=== PATIENT | female | born 1995 | race Two or more races ===

== ENCOUNTER 2018-09-28 15:16 | Inpatient (IN) | payer MEDICAID ==
[2018-09-28] MEDS ORDERED: IBUPROFEN 600 MG TAB PO (16:30)
[2018-09-28] MEDS ORDERED: OXYTOCIN 30 UNITS/LR 500 ML IV (16:30)
[2018-09-28] MEDS ORDERED: BUTORPHANOL 2 MG INJ IV (16:30)
[2018-09-28] MEDS ORDERED: OXYCODONE/ASPIRIN (4.88/325) TAB PO (16:30)
[2018-09-28] MEDS ORDERED: MISOPROSTOL 200 MCG TAB PR (16:30)
[2018-09-28] MEDS ORDERED: LIDOCAINE 1% (MPF) 30 ML INJ INJ (16:30)
[2018-09-28] MEDS ORDERED: METHYLERGONOVINE 0.2 MG INJ IM (16:30)
[2018-09-28] MEDS ORDERED: CARBOPROST 250 MCG INJ IM (16:30)
[2018-09-28 17:30] LABS: ADD MAN DIFF? NO
[2018-09-28 17:33] LABS: WHITE BLOOD COUNT 9.2 10^3/ul (4.8-10.8)
[2018-09-28 17:33] LABS: BASOPHILS % 0.4 % (0.0-2.0); EOSINOPHILS # 0.1 10^3/ul (0.0-0.5); EOSINOPHILS % 0.9 % (0.0-7.0); HEMATOCRIT 31.2 % (37.0-47.0); HEMOGLOBIN 10.1 g/dl (12.0-16.0); LYMPHOCYTES % 22.1 % (15.0-51.0); MEAN CORPUSCULAR HEMOGLOBIN 27.8 pg (29.0-33.0); MEAN CORPUSCULAR HGB CONC 32.4 g/dl (32.0-37.0); MEAN PLATELET VOLUME 12.4 fl (7.4-10.4); MONOCYTE # 0.9 10^3/ul (0.3-0.9); MONOCYTES % 9.4 % (0.0-11.0); NEUTROPHIL # 6.1 10^3/ul (1.6-7.5); NUCLEATED RED BLOOD CELLS% 0.2 /100WBC (0.0-0.0); PLATELET COUNT 255 10^3/UL (140-415); RED BLOOD COUNT 3.63 10^6/ul (4.20-5.40); RED CELL DISTRIBUTION WIDTH 15.8 % (11.5-14.5)
[2018-09-28 17:52] LABS: INR 0.92; PROTIME 12.4 Sec (11.9-14.9)
[2018-09-28 17:53] LABS: PARTIAL THROMBOPLASTIN TIME 26.5 Sec (23.0-35.0)
[2018-09-28 18:31] LABS: HEPATITIS B SURFACE ANTIGEN NEGATIVE (NEGATIVE)
[2018-09-28] MEDS: LACTATED RINGER'S 1,000 ML IV ×2 (19:00→20:10)
[2018-09-29 01:55] LABS: AMPHETAMINE/METHAMPHETAMINE Negative (NEGATIVE); BARBITURATES Negative (NEGATIVE); BENZODIAZEPINES Negative (NEGATIVE); CANNABINOIDS Negative (NEGATIVE); COCAINE Negative (NEGATIVE); OPIATES Negative (NEGATIVE)
[2018-09-29] MEDS: LACTATED RINGER'S 1,000 ML IV ×3 (04:05→15:56)
[2018-09-29] MEDS: OXYTOCIN 30 UNITS/LR 500 ML IV ×4 (08:36→22:04)
[2018-09-29] MEDS ORDERED: FENTAnyl 2MCG/ML-ROPIV 0.2% 100 ML (15:51)
[2018-09-29] MEDS ORDERED: NALOXONE (0.4 MG/ML) INJ IV (16:00)
[2018-09-29] MEDS: FENTAnyl 2MCG/ML-ROPIV 0.2% 100 ML BAG EPI (17:21)
[2018-09-29 21:37] LABS: RAPID PLASMA REAGIN NONREACTIVE (NR)
[2018-09-29] MEDS ORDERED: NACL 0.9% 3 ML SYG IV (22:00)
[2018-09-29] MEDS ORDERED: DIBUCAINE 1% 30 GM OINT TOP (22:00)
[2018-09-29] MEDS ORDERED: DIPHENHYDRAMINE 25 MG CAP PO (22:00)
[2018-09-29] MEDS ORDERED: BENZOCAINE 20% 56 ML SPRAY TOP (22:00)
[2018-09-29] MEDS ORDERED: METHYLERGONOVINE 0.2 MG INJ IM (22:00)
[2018-09-29] MEDS ORDERED: OXYCODONE/ASPIRIN (4.88/325) TAB PO ×2 (22:00)
[2018-09-29] MEDS ORDERED: OXYTOCIN 30 UNITS/LR 500 ML IV (22:00)
[2018-09-29] MEDS ORDERED: SENNA/DOCUSATE NA (8.6MG/50MG) TAB PO (22:00)
[2018-09-29] MEDS ORDERED: ONDANSETRON 4 MG INJ IV (22:00)
[2018-09-29] MEDS ORDERED: CARBOPROST 250 MCG INJ IM (22:00)
[2018-09-29] MEDS ORDERED: MISOPROSTOL 200 MCG TAB PR (22:00)
[2018-09-30] MEDS: IBUPROFEN 600 MG TAB PO ×4 (00:33→17:48)
[2018-09-30] MEDS: LANOLIN HPA 1 PKT TOP (00:33)
[2018-09-30] MEDS: WITCH HAZEL/GLYCERIN PAD PR (00:33)
[2018-09-30 07:05] LABS: ADD MAN DIFF? NO
[2018-09-30 07:12] LABS: WHITE BLOOD COUNT 10.4 10^3/ul (4.8-10.8)
[2018-09-30 07:12] LABS: BASOPHIL # 0.1 10^3/ul (0.0-0.1); BASOPHILS % 0.5 % (0.0-2.0); EOSINOPHILS % 0.4 % (0.0-7.0); HEMATOCRIT 26.6 % (37.0-47.0); HEMOGLOBIN 8.5 g/dl (12.0-16.0); LYMPHOCYTES % 18.8 % (15.0-51.0); MEAN CORPUSCULAR HEMOGLOBIN 27.4 pg (29.0-33.0); MEAN CORPUSCULAR VOLUME 85.8 fl (82.0-101.0); MEAN PLATELET VOLUME 12.6 fl (7.4-10.4); MONOCYTE # 1.2 10^3/ul (0.3-0.9); MONOCYTES % 11.3 % (0.0-11.0); NEUTROPHIL # 7.1 10^3/ul (1.6-7.5); NEUTROPHILS % 68.1 % (39.0-77.0); PLATELET COUNT 193 10^3/UL (140-415); RED CELL DISTRIBUTION WIDTH 15.9 % (11.5-14.5)
[2018-09-30] MEDS: SENNA/DOCUSATE NA (8.6MG/50MG) TAB PO ×2 (09:02→21:22)
[2018-10-01] MEDS: IBUPROFEN 600 MG TAB PO ×3 (00:10→11:58)
[2018-10-01] MEDS: SENNA/DOCUSATE NA (8.6MG/50MG) TAB PO (09:00)
[2018-10-01] MEDS: FERROUS GLUCONATE (EC) 325 MG TAB PO (09:24)
[2018-10-01] MEDS ORDERED: BUPIVACAINE 0.75%/DEXT (SPINAL) 2 ML INJ (11:34)
[2018-10-01] MEDS ORDERED: morphine SULFATE/PF (10 MG/10 ML) INJ (11:35)
[2018-10-01] MEDS ORDERED: PHENYLephrine 10 MG INJ (11:49)
[2018-10-01] MEDS ORDERED: METOCLOPRAMIDE 10 MG INJ (11:59)
[2018-10-01] MEDS ORDERED: ONDANSETRON 4 MG INJ (11:59)
[2018-10-01] MEDS ORDERED: OXYTOCIN 10 UNIT INJ ×2 (12:07→12:37)
[2018-10-01] MEDS ORDERED: MIDAZOLAM 1 MG/ML 2 ML INJ (12:08)
== END 2018-10-01 17:35 | disposition home or self-care (01) | DRG 807 ==
LOC: OBT 15:16 → PP1 09-29 23:23 → L-D 15:17 → OBT 16:00 → L-D 16:00
PROVIDERS: Obstetrics & Gynecology
PROC: 10E0XZZ Delivery of Products of Conception, External Approach (ICD-10-PCS; principal; 2018-09-29)
PROC: 0UQGXZZ Repair Vagina, External Approach (ICD-10-PCS; 2018-09-29)
DX: O71.4 Obstetric high vaginal laceration alone (principal); Z37.0 Single live birth; Z3A.39 39 weeks gestation of pregnancy
CPT/HCPCS: 62319; 76815; 80307; 85025; 85610; 85730; 86592; 86850; 86900; 86901; 87340